=== PATIENT | male | born 1980 | race Caucasian/White ===

== ENCOUNTER 2018-11-17 05:01 | Emergency (ER) | payer SELFPAY ==
[~2018-11-17] VITALS: Ht 175.3 cm; Wt 95.7 kg
[2018-11-17 05:05] VITALS: Ht 175.3 cm; Wt 95.7 kg
--- NOTE | 2018-11-17 06:28 | ERD ---
ER Documentation Chief Complaint Chief Complaint right upper abd pain x 1 day HPI This is a 38-year-old male complaining of right upper quadrant pain/right mid abdominal pain is been constant for the past day. No nausea vomiting or diarrhea. The pain is described as sharp. No prior history of gallstones no back pain no chest pain or shortness of breath. Pain is worse with movement better with remaining still ROS All systems reviewed and are negative except as per history of present illness. Medications Home Meds No Active Prescriptions or Reported Meds Allergies Allergies: Coded Allergies: No Known Drug Allergies (Verified Allergy, Unknown, 11/17/18) PMhx/Soc Medical and Surgical Hx: pt denies Medical Hx, pt denies Surgical Hx Hx Alcohol Use: No Hx Substance Use: No Hx Tobacco Use: No Smoking Status: Never smoker FmHx Family History: No coronary disease Physical Exam Vitals Vital Signs Date Temp Pulse Resp B/P (MAP) Pulse Ox O2 O2 Flow FiO2 Time Delivery Rate 11/17/18 100 4.0 09:50 11/17/18 75 18 131/79 99 Room Air 06:26 (96) 11/17/18 65 18 138/81 99 Room Air 05:31 (100) 11/17/18 97.6 86 18 145/83 99 05:05 (103) Physical Exam Const: Well-developed, well-nourished Head: Atraumatic, normocephalic Eyes: Normal Conjunctiva, PERRLA, EOMI, normal sclera, no nystagmus ENT: Normal External Ears, Nose and Mouth, moist mucus membranes. Neck: Full range of motion. No meningismus, no lymphadenopathy. Resp: Clear to auscultation bilaterally, no wheezing, rhonchi, rales Cardio: Regular rate and rhythm, no murmurs, S1 S2 present Abd: Soft, non tender x 4, non distended. There is a palpable right mid upper quadrant hernia were he has tenderness normal bowel sounds, no guarding or rebound, no pulsitile abdominal masses or bruits Skin: No petechiae or rashes, no ecchymosis , no maculopapular rash Back: No midline or flank tenderness Ext: No cyanosis, or edema, FROM x 4, normal inspection, neurovascularly intact x 4 Neur: Awake and alert, STR 5/5 x 4, sensation intact x 4, no focal findings, cerebellum intact Psych: Normal Mood and Affect Result Diagram: 11/17/18 0530 11/17/18 0530 Results 24 hrs Laboratory Tests Test 11/17/18 05:30 11/17/18 08:09 White Blood Count 9.4 10^3/ul Red Blood Count 5.25 10^6/ul Hemoglobin 15.1 g/dl Hematocrit 44.2 % Mean Corpuscular Volume 84.2 fl Mean Corpuscular Hemoglobin 28.8 pg Mean Corpuscular Hemoglobin Concent 34.2 g/dl Red Cell Distribution Width 12.2 % Platelet Count 311 10^3/UL Mean Platelet Volume 9.9 fl Immature Granulocytes % 0.300 % Neutrophils % 53.5 % Lymphocytes % 29.3 % Monocytes % 9.2 % Eosinophils % 7.3 % Basophils % 0.4 % Nucleated Red Blood Cells % 0.0 /100WBC Immature Granulocytes # 0.030 10^3/ul Neutrophils # 5.0 10^3/ul Lymphocytes # 2.7 10^3/ul Monocytes # 0.9 10^3/ul Eosinophils # 0.7 10^3/ul Basophils # 0.0 10^3/ul Nucleated Red Blood Cells # 0.0 10^3/ul Sodium Level 142 mmol/L Potassium Level 3.6 mmol/L Chloride Level 104 mmol/L Carbon Dioxide Level 26 mmol/L Anion Gap 12 Blood Urea Nitrogen 16 mg/dl Creatinine 0.79 mg/dl Est Glomerular Filtrat Rate mL/min > 60 mL/min Glucose Level 101 mg/dl Calcium Level 9.3 mg/dl Total Bilirubin 0.4 mg/dl Direct Bilirubin 0.00 mg/dl Indirect Bilirubin 0.4 mg/dl Aspartate Amino Transf (AST/SGOT) 21 IU/L Alanine Aminotransferase (ALT/SGPT) 50 IU/L Alkaline Phosphatase 91 IU/L Total Protein 7.4 g/dl Albumin 4.6 g/dl Globulin 2.80 g/dl Albumin/Globulin Ratio 1.64 Lipase 63 U/L Urine Color STRAW Urine Clarity CLEAR Urine pH 6.0 Urine Specific Helen 1.008 Urine Ketones NEGATIVE mg/dL Urine Nitrite NEGATIVE mg/dL Urine Bilirubin NEGATIVE mg/dL Urine Urobilinogen NEGATIVE mg/dL Urine Leukocyte Esterase NEGATIVE Lucero/ul Urine Hemoglobin NEGATIVE mg/dL Urine Glucose NEGATIVE mg/dL Urine Total Protein NEGATIVE mg/dl Current Medications Medications Dose Sig/Maximiliano Start Time Status Last (Trade) Ordered Route PRN Stop Time Admin Dose Reason Admin Propofol 100 mg ONCE ONCE 11/17/18 DC (Diprivan) IV 06:30 11/17/18 06:31 Procedures/[place] [id number] Radiology Main Line: [phone] DIAGNOSTIC IMAGING REPORT Patient: MANFRED SMYTH : 1980 Age: 38 Sex: M MR #: [id number] DOS: 11/17/18519 Ordering MD: TASHA KAPADIA MD Location: E/R Room/Bed: PROCEDURE: US Abdomen. CLINICAL INDICATION: abdominal pain TECHNIQUE: Multiple real-time images were acquired of the patient's right upper quadrant abdomen and retroperitoneum utilizing a high resolution transducer. COMPARISON: None FINDINGS: The liver demonstrates normal echogenicity. The liver is normal in size and no focal solid lesions are seen. The liver measures 14.8 cm in length. The portal vein is patent with normal direction of flow. No intrahepatic biliary dilatation is seen. No gallstones are identified within the gallbladder. There is no pericholecystic fluid or gallbladder wall thickening. The common bile duct measures 3 mm in maximal dimension. The pancreas is not well seen due to overlying bowel gas. No free fluid is identified. The right kidney is normal in size, and demonstrate normal echogenicity and cortical thickness. The right kidney measures 8.8 cm in long dimension. There is no evidence of hydronephrosis. There are no kidney stones. RPTAT: AA IMPRESSION: Unremarkable right upper quadrant abdominal ultrasound. .Malcom Peres MD, MD Date Time Electronically viewed and signed by .Malcom Peres MD, on 11/17/2018 08:13 .S/ CC: TASHA KAPADIA MD [id number] Ordering MD: FIOR IQBAL DO Location: E/R Room/Bed: PROCEDURE: CT abdomen and pelvis without contrast. CLINICAL INDICATION: Abdominal pain. Hernia TECHNIQUE: CT scan of the abdomen and pelvis without contrast was performed on a multi-slice CT scanner . Sagittal and coronal reformatted images were obtained from the axial source images. One or more of the following dose reduction techniques were used: - Automated exposure control. - Adjustment of the mA and/or kV according to patient size. - Use of iterative reconstruction technique. DICOM images are available DLP 1258.6 mGycm. CTDIvol 17.57 mGy COMPARISON: None FINDINGS: Fine detail of the soft tissues is limited secondary to the lack of IV contrast. Evaluation for enhancing lesions cannot be performed. Lower thorax:The lung bases are clear. Liver: There is uniform density of the liver with no gross focal lesion. Biliary: The gallbladder is unremarkable without surrounding inflammation. No biliary dilatation. Pancreas: Homogeneous density of the pancreas without visible focal lesion or cystic abnormality. There is no pancreatic ductal dilatation. Spleen: Unremarkable without enlargement or focal lesion. Adrenal Glands: The adrenal glands are within normal limits without mass. Urinary: The kidneys are symmetric in size bilaterally. There are no visible renal or ureteral stones. There is no hydronephrosis. Gastrointestinal: There is a fecal filled colon.No evidence of bowel obstruction or inflammation. There is no appendicitis. There is diverticulosis without diverticulitis. Lymph nodes: There are no enlarged lymph nodes. Vascular: The aorta is unremarkable. Peritoneum/mesentery: No free fluid or free air. Reproductive organs: The prostate is grossly unremarkable. Musculoskeletal: There is a small hernia is seen in the upper abdomen to the right of the midline and this contains fat with mild fluid and no evidence of bowel involvement. Degenerative changes are seen in the lumbar spine with no acute osseous abnormality. There is a trace fat containing left inguinal hernia. Other: None IMPRESSION: There is a small upper abdominal hernia which is seen directly to the right of the midline located 10 cm above the level of the umbilicus containing a small amount of fat and fluid. This likely represent strangulation of fat which is herniated with no evidence of bowel involvement. There is also a trace fat containing left inguinal hernia without inflammation. Fecal filled colon. No evidence of bowel obstruction or inflammation. There is no appendicitis. There is diverticulosis without diverticulitis. No renal or ureteral calculi with no evidence of hydronephrosis. RPTAT: AA .Jenniffer Bosch MD, MD Date Time Electronically viewed and signed by .Jenniffer Bosch MD, MD on 11/17/2018 08:17 .J/ CC: FIOR IQBAL DO [id number] Procedural Sedation: Pre-assessment performed. See preceding complete history and physical for details. Time out performed. See sedation documentation for details. Risk, benefits and alternatives were discussed with the patient. Medication(s): Propofol Complications: No hypoxic or apneic events Recovered without incident. A minimum of 16 minutes of face to face time was performed including preparation, sedation and recovery time. Procedure: Hernia reduction by me. After conscious sedation the patient was adequately sedated and constant pressure was applied by me to the fat-containing abdominal wall hernia. Gentle steady pressure was applied I could feel partial reduction but not complete. Discussed this with the patient's that we will give him some pain control and surgery follow-up and to return if any worse Departure Diagnosis: Primary Impression: Abdominal wall hernia Condition: Stable FIOR IQBAL DO Nov 17, 2018 06:28
[2018-11-17] MEDS ORDERED: PROPOFOL 200 MG INJ IV ONE ×2 (06:30→10:30)
[2018-11-17] MEDS ORDERED: IBUP800T48 PO (10:07)
[2018-11-17] MEDS ORDERED: HYDR-4011 PO (10:07)
[2018-11-17 10:40] VITALS: BP 126/72; PULSE 78; RESP 18
== END 2018-11-17 10:47 | disposition home or self-care (01) ==
LOC: E/R 05:01
DX: K46.9 Unspecified abdominal hernia without obstruction or gangrene (principal)
CPT/HCPCS: 36415; 74176; 76705; 80053; 81003; 83690; 85025; 94770